=== PATIENT | male | born 1950 | race Caucasian/White ===

== ENCOUNTER 2019-09-10 08:59 | Outpatient (CLI) | payer MEDICARE, OTHER, SELFPAY ==
--- NOTE | 2019-09-22 17:14 | SLEEP_ITS ---
Split night study. DATE OF STUDY: 09/10/2019 ORDERING PHYSICIAN: Jeimy Caballero M.D. REASON FOR THIS STUDY: Obstructive sleep apnea syndrome. HISTORY: This patient is a 69-year-old male, 71 inches tall, weighing 201 pounds with a body mass index of 28. He has complaints of probable sleep apnea due to erythrocytosis. He has had 3 or 4 phlebotomies over the last year. He was evaluated by Hematology and found that he did not have a specific mutation to cause his elevated blood counts. He does snore at night, has dreams on occasion, urinates once at night, wakes up feeling refreshed and does not take naps in the day although in the evening around 7, if he is sitting in a chair with the television on, he may doze. He takes a short nap after intense exercise. He naps for 30 minutes on the days when he has extreme exercise. He drinks 2 cups of coffee in the morning. He does not have problems with leg movements or irritable feelings in the legs at night. He has hypertension. He rarely has anxiety. He denies noticing parts of his body jerk at night. He does not have kicking at night. He does not wake up with morning jaw pain, does not grind his teeth, is not bothered by pain during the day and is not awakened with pain at night. He rarely has nightmares. He occasionally awakens at night with heartburn, snoring and snoring loudly enough that others complain about it. He occasionally gasps for breath at night. He does not sweat excessively at night or notices heart pounding or beating irregularly at night. He rarely falls asleep during the day, rarely involuntarily. He rarely falls asleep with physical effort. He does not have loss of muscle tone with strong emotion or daytime difficulties due to excessive sleepiness. He does not have sleep paralysis or vivid dreamlike scenes upon waking or falling asleep. Normal bedtime is between 10:00 and 11:00 p.m., falling asleep quickly, waking at night for 5 minutes to go to the bathroom. He does not usually take naps, but then says he does take a nap on any day that he exercises, which is about 3 days a week and if he is sitting in a chair around 07:00 p.m. MEDICAL COMORBIDITIES: Hypertension, prostate disease, heart disease. MEDICATIONS: 1. Amlodipine 10 mg a day. 2. Finasteride 5 mg a day. 3. Quinapril 40 mg a day. 4. Aspirin 81 mg a day. HABITS: Never smoked tobacco. Caffeine, 2 cups of coffee a day. No alcohol. DESCRIPTION OF THE STUDY: On the [place] Sleepiness Scale, his score is 3. This was conducted as a split night study using the [employer] multiple channel system including EOG, EEG, submental EMG, EKG, nasal and oral airflow using thermistors and nasal pressure sensors, chest and abdominal belts, body position data and pulse oximetry. The study was scored using [facility] guidelines. During the baseline portion, the recording time was 211.9 minutes. Sleep time was 159 minutes. Sleep efficiency was 75%. Sleep latency was 29.9 minutes. REM latency 81.5 minutes. There were 21 awakenings and the patient spent 23 minutes awake after sleep onset. Sleep architecture showed 8.2% stage 1 sleep, 55.7% stage 2 sleep, 31.8% stage 3 sleep and 4.4% stage REM. He spent 23% of the study supine. Sleep was fragmented with frequent shifts between stage wake 1 and 2. He had a short REM episode. The apnea-hypopnea index was 10.9, all obstructive events. The patient had 2 obstructive hypopneas in non-supine REM for an index of 17.1. He had 5 obstructive apneas, 16 obstructive hypopneas in supine, non-REM for an index of 34.5. He had 6 obstructive hypopneas in non-supine non-REM for an index of 3.1. The lowest desaturation was 85%. There were 30 desaturations of 4% or greater for an index of 8.5. The mean saturation was 92.3%.
== END 2019-09-10 09:00 | disposition home or self-care (01) ==
LOC: ANHCSM 09:00
PROVIDERS: PCP Family Medicine; Visit Provider Internal Medicine Critical Care Medicine
DX: G47.33 Obstructive sleep apnea (adult) (pediatric) (principal)
CPT/HCPCS: 95811

== ENCOUNTER 2020-04-14 10:46 | Outpatient (CLI) | payer MEDICARE, OTHER, SELFPAY ==
[2020-04-14 11:07] LABS: Basophils Percent Auto 0.6 % (0.2-1.2); Eosinophils Absolute Auto 0.1 K/mm3 (0-0.3); Eosinophils Percent Auto 1.8 % (0-4.4); Hematocrit 49.3 % (42.0-52.0); Hemoglobin 16.8 g/dL (14.0-18.0); Immature Granulocyte Absolute 0.01 K/mm3 (0.00-0.031); Immature Granulocyte Percent A 0.2 % (0-0.5); Lymphocytes Absolute Auto 1.65 K/mm3 (0.9-3.2); Lymphocytes Percent Auto 26.4 % (18.3-44.2); Mean Corpuscular HGB Conc 34.1 g/dl (32-36); Mean Corpuscular Hemoglobin 30.9 pg (26-34); Mean Corpuscular Volume 90.6 fl (80-100); Mean Platelet Volume 10.4 fl (7.4-10.4); Monocytes Absolute Auto 0.7 K/mm3 (0.1-0.6); Monocytes Percent Auto 10.4 % (2.6-8.5); Neutrophils Absolute Auto 3.8 K/mm3 (1.3-6.7); Neutrophils Percent Auto 60.6 % (45.5-73.1); Platelet Count Result 162 k/mm3 (150-375); Red Blood Count 5.44 M/mm3 (4.6-6.20); Red Cell Distribution Width 14.6 % (11.5-14.5); White Blood Count 6.3 K/mm3 (4.5-10.0)
[2020-04-14 11:11] LABS: Blood Urea Nitrogen 16 mg/dL (8-26); Carbon Dioxide 26 mmol/L (22-30); Chloride 103 mmol/L (98-109); Estimated Glomerular Filt Rate > 60; Glucose 82 mg/dL (70-105); Potassium 3.9 mmol/L (3.5-4.9); Sodium 141 mmol/L (138-146)
== END 2020-04-14 10:47 | disposition home or self-care (01) ==
LOC: ANHLAB 10:48
PROVIDERS: PCP Family Medicine; Visit Provider Internal Medicine Hematology & Oncology
DX: D75.1 Secondary polycythemia (principal)
CPT/HCPCS: 36415; 80048; 85025

== ENCOUNTER 2020-07-06 14:09 | Outpatient (CLI) | payer MEDICARE, OTHER, SELFPAY ==
[2020-07-06 14:23] LABS: Basophils Percent Auto 0.6 % (0.2-1.2); Eosinophils Absolute Auto 0.1 K/mm3 (0-0.3); Eosinophils Percent Auto 1.8 % (0-4.4); Hematocrit 48.7 % (42.0-52.0); Hemoglobin 16.4 g/dL (14.0-18.0); Immature Granulocyte Absolute 0.01 K/mm3 (0.00-0.031); Immature Granulocyte Percent A 0.1 % (0-0.5); Lymphocytes Absolute Auto 2.06 K/mm3 (0.9-3.2); Lymphocytes Percent Auto 29.3 % (18.3-44.2); Mean Corpuscular HGB Conc 33.7 g/dl (32-36); Mean Corpuscular Hemoglobin 31.1 pg (26-34); Mean Corpuscular Volume 92.4 fl (80-100); Mean Platelet Volume 10.2 fl (7.4-10.4); Monocytes Absolute Auto 0.8 K/mm3 (0.1-0.6); Monocytes Percent Auto 11.8 % (2.6-8.5); Neutrophils Percent Auto 56.4 % (45.5-73.1); Platelet Count Result 150 k/mm3 (150-375); Red Blood Count 5.27 M/mm3 (4.6-6.20); Red Cell Distribution Width 13.8 % (11.5-14.5)
[2020-07-06 17:36] LABS: Alanine Aminotransferase 32 U/L (4-50); Albumin Level 4.1 g/dL (3.5-5.1); Alkaline Phosphatase 82 U/L (38-126); Anion Gap 6 mmol/L (8-16); Aspartate Amino Transferase 34 U/L (17-59); Bilirubin,Total 1.2 mg/dL (0.2-1.3); Blood Urea Nitrogen 20 mg/dL (9-20); Carbon Dioxide 33 mmol/L (22-30); Chloride 103 mmol/L (98-107); Estimated Glomerular Filt Rate > 60; Glucose 58 mg/dL (75-110); Potassium 3.7 mmol/L (3.4-5.0); Sodium 142 mmol/L (137-145)
== END 2020-07-06 14:10 | disposition home or self-care (01) ==
PROVIDERS: PCP Family Medicine; Visit Provider Internal Medicine Hematology & Oncology
DX: D75.1 Secondary polycythemia (principal); D69.6 Thrombocytopenia, unspecified
CPT/HCPCS: 36415; 80053; 85025

== ENCOUNTER 2022-01-10 09:42 | Outpatient (CLI) | payer MEDICARE, OTHER, SELFPAY ==
[2022-01-10 11:37] LABS: Cholesterol 160 mg/dL (0-200); HDL Direct 29 mg/dL; Triglycerides 152 mg/dL (<150)
[2022-01-10 11:48] LABS: LDL Cholesterol Direct 85 mg/dL
== END 2022-01-10 09:43 | disposition home or self-care (01) ==
LOC: ANHLAB 09:44
PROVIDERS: PCP Nurse Practitioner; Visit Provider Nurse Practitioner
DX: I10 Essential (primary) hypertension (principal)
CPT/HCPCS: 36415; 80061

== ENCOUNTER 2022-07-11 11:34 | Outpatient (CLI) | payer MEDICARE, OTHER, SELFPAY ==
[2022-07-11 13:32] LABS: Alanine Aminotransferase 31 U/L (6-50); Albumin Level 4.5 g/dL (3.5-5.1); Alkaline Phosphatase 79 U/L (38-126); Anion Gap 8 mmol/L (8-16); Aspartate Amino Transferase 32 U/L (17-59); Bilirubin,Total 1.1 mg/dL (0.2-1.3); Blood Urea Nitrogen 27 mg/dL (9-20); Calcium 9.4 mg/dL (8.4-10.2); Carbon Dioxide 29 mmol/L (22-30); Chloride 105 mmol/L (98-107); Cholesterol 153 mg/dL (0-200); Estimated Glomerular Filt Rate > 60; Glucose 95 mg/dL (65-110); HDL Direct 36 mg/dL; Potassium 4.4 mmol/L (3.4-5.0); Sodium 142 mmol/L (137-145); Triglycerides 118 mg/dL (<150)
[2022-07-11 13:44] LABS: LDL Cholesterol Direct 85 mg/dL
== END 2022-07-11 11:35 | disposition home or self-care (01) ==
LOC: ANHLAB 11:36
PROVIDERS: PCP Nurse Practitioner; Visit Provider Nurse Practitioner
DX: I10 Essential (primary) hypertension (principal); E78.5 Hyperlipidemia, unspecified; E55.9 Vitamin D deficiency, unspecified
CPT/HCPCS: 36415; 80053; 80061; 82306

== ENCOUNTER 2023-01-10 10:55 | Outpatient (CLI) | payer MEDICARE, OTHER, SELFPAY ==
[2023-01-10 13:50] LABS: Alanine Aminotransferase 42 U/L (6-50); Albumin Level 4.4 g/dL (3.5-5.1); Alkaline Phosphatase 60 U/L (38-126); Anion Gap 6 mmol/L (8-16); Aspartate Amino Transferase 41 U/L (17-59); Bilirubin,Total 1.7 mg/dL (0.2-1.3); Blood Urea Nitrogen 15 mg/dL (9-20); Calcium 9.4 mg/dL (8.4-10.2); Carbon Dioxide 30 mmol/L (22-30); Chloride 102 mmol/L (98-107); Cholesterol 150 mg/dL (0-200); Estimated Glomerular Filt Rate > 60; Glucose 96 mg/dL (65-110); HDL Direct 32 mg/dL; Potassium 3.9 mmol/L (3.4-5.0); Sodium 138 mmol/L (137-145); Triglycerides 146 mg/dL (<150)
[2023-01-10 14:00] LABS: LDL Cholesterol Direct 87 mg/dL
== END 2023-01-10 10:56 | disposition home or self-care (01) ==
LOC: ANHLAB 10:57
PROVIDERS: PCP Family Medicine; Visit Provider Nurse Practitioner Family
DX: I10 Essential (primary) hypertension (principal); Z13.220 Encounter for screening for lipoid disorders; Z13.29 Encounter for screening for other suspected endocrine disorder
CPT/HCPCS: 36415; 80053; 80061; 84443

== ENCOUNTER 2023-02-26 05:52 | Emergency (ER) | payer MEDICARE, OTHER, SELFPAY ==
[2023-02-26 05:56] VITALS: BP 156/94; PULSE 90; RESP 15; TEMP 36.4; O2SAT 98
--- NOTE | 2023-02-26 05:59 | ECG_ITS ---
Measurements Intervals [place] Rate: 80 P: 33 CT: 170 QRS: -18 QRSD: 98 T: 12 QT: 357 QTc: 412 Interpretive Statements SINUS RHYTHM LOW QRS VOLTAGE IN PRECORDIAL LEADS BORDERLINE T WAVE ABNORMALITY- INFERIOR LEADS BORDERLINE ECG NO PREVIOUS ECG AVAILABLE FOR COMPARISON Electronically Signed On 02-26-2023 8:15:54 CDT by Leoncio Ritter D.O.
--- NOTE | 2023-02-26 08:52 | PC.NURSE ---
Pt LWBS, stating, I feel better, not so dizzy . pt ambulated out of ED with steady gait after receiving resources. pt given ENT names and numbers. pt and staff spoke of safety measures to take at home, instructed not to drive until feelings of dizziness have been totally resolved. pt agreeable to this.
== END 2023-02-26 09:35 | disposition left against medical advice (07) ==
LOC: ANHED 09:16
PROVIDERS: Emergency Provider Emergency Medicine; PCP Family Medicine
DX: R11.2 Nausea with vomiting, unspecified (principal)
CPT/HCPCS: 93005; 99199

== ENCOUNTER 2024-01-11 11:17 | Outpatient (CLI) | payer MEDICARE, OTHER, SELFPAY ==
[2024-01-11 11:35] LABS: Basophils Percent Auto 0.6 % (0.2-1.2); Eosinophils Absolute Auto 0.1 K/mm3 (0-0.3); Eosinophils Percent Auto 1.5 % (0-4.4); Hemoglobin 17.7 g/dL (14.0-18.0); Immature Granulocyte Absolute 0.02 K/mm3 (0.00-0.031); Immature Granulocyte Percent A 0.3 % (0-0.5); Lymphocytes Absolute Auto 1.54 K/mm3 (0.9-3.2); Lymphocytes Percent Auto 22.7 % (18.3-44.2); Mean Corpuscular HGB Conc 33.4 g/dl (32-36); Mean Corpuscular Hemoglobin 31.4 pg (26-34); Mean Corpuscular Volume 94.1 fl (80-100); Mean Platelet Volume 10.6 fl (7.4-10.4); Monocytes Absolute Auto 0.6 K/mm3 (0.1-0.6); Monocytes Percent Auto 9.3 % (2.6-8.5); Neutrophils Absolute Auto 4.5 K/mm3 (1.3-6.7); Neutrophils Percent Auto 65.6 % (45.5-73.1); Platelet Count Result 156 k/mm3 (150-375); Red Blood Count 5.63 M/mm3 (4.6-6.20); White Blood Count 6.8 K/mm3 (4.5-10.0)
[2024-01-11 13:31] LABS: Cholesterol 156 mg/dL (0-200); HDL Direct 33 mg/dL; Triglycerides 167 mg/dL (<150)
[2024-01-11 13:34] LABS: Alanine Aminotransferase 67 U/L (6-50); Albumin Level 4.7 g/dL (3.5-5.1); Alkaline Phosphatase 61 U/L (38-126); Anion Gap 13 mmol/L (4-12); Aspartate Amino Transferase 59 U/L (17-59); Bilirubin,Total 2.5 mg/dL (0.2-1.3); Blood Urea Nitrogen 16 mg/dL (9-20); Calcium 9.6 mg/dL (8.4-10.2); Carbon Dioxide 28 mmol/L (22-30); Chloride 101 mmol/L (98-107); Estimated Glomerular Filt Rate > 60; Glucose 102 mg/dL (65-110); Potassium 4.2 mmol/L (3.4-5.0); Sodium 142 mmol/L (137-145)
[2024-01-11 13:36] LABS: Hemoglobin A1C 5.4 % (<5.7)
[2024-01-11 13:42] LABS: LDL Cholesterol Direct 94 mg/dL
== END 2024-01-11 11:18 | disposition home or self-care (01) ==
PROVIDERS: Nurse Practitioner Family; PCP Family Medicine; Visit Provider Internal Medicine Hematology & Oncology
DX: R73.03 Prediabetes (principal); E78.5 Hyperlipidemia, unspecified
CPT/HCPCS: 36415; 80053; 80061; 83036; 85025

== ENCOUNTER 2024-05-12 09:55 | Outpatient (CLI) | payer MEDICARE, OTHER, SELFPAY ==
[2024-05-12 10:15] LABS: Basophils Percent Auto 0.5 % (0.2-1.2); Eosinophils Absolute Auto 0.2 K/mm3 (0-0.3); Eosinophils Percent Auto 2.6 % (0-4.4); Hematocrit 51.8 % (42.0-52.0); Hemoglobin 17.4 g/dL (14.0-18.0); Immature Granulocyte Absolute 0.01 K/mm3 (0.00-0.031); Immature Granulocyte Percent A 0.2 % (0-0.5); Lymphocytes Absolute Auto 1.47 K/mm3 (0.9-3.2); Lymphocytes Percent Auto 23.4 % (18.3-44.2); Mean Corpuscular HGB Conc 33.6 g/dl (32-36); Mean Corpuscular Volume 92.3 fl (80-100); Mean Platelet Volume 10.2 fl (7.4-10.4); Monocytes Absolute Auto 0.7 K/mm3 (0.1-0.6); Monocytes Percent Auto 10.8 % (2.6-8.5); Neutrophils Absolute Auto 3.9 K/mm3 (1.3-6.7); Neutrophils Percent Auto 62.5 % (45.5-73.1); Platelet Count Result 150 k/mm3 (150-375); Red Blood Count 5.61 M/mm3 (4.6-6.20); Red Cell Distribution Width 14.5 % (11.5-14.5); White Blood Count 6.3 K/mm3 (4.5-10.0)
[2024-05-12 12:51] LABS: Alanine Aminotransferase 60 U/L (6-50); Albumin Level 4.5 g/dL (3.5-5.1); Alkaline Phosphatase 67 U/L (38-126); Anion Gap 8 mmol/L (4-12); Aspartate Amino Transferase 58 U/L (17-59); Bilirubin,Total 1.6 mg/dL (0.2-1.3); Blood Urea Nitrogen 15 mg/dL (9-20); Calcium 9.7 mg/dL (8.4-10.2); Carbon Dioxide 30 mmol/L (22-30); Chloride 102 mmol/L (98-107); Estimated Glomerular Filt Rate > 60; Glucose 94 mg/dL (65-110); Potassium 4.3 mmol/L (3.4-5.0); Sodium 140 mmol/L (137-145)
== END 2024-05-12 09:56 | disposition home or self-care (01) ==
LOC: ANHLAB 09:57
PROVIDERS: PCP Family Medicine; Visit Provider Internal Medicine Hematology & Oncology
DX: D75.1 Secondary polycythemia (principal)
CPT/HCPCS: 36415; 80053; 85025

== ENCOUNTER 2024-07-15 10:53 | Outpatient (CLI) | payer MEDICARE, OTHER, SELFPAY ==
[2024-07-15 11:19] LABS: Basophils Percent Auto 0.7 % (0.2-1.2); Eosinophils Percent Auto 0.4 % (0-4.4); Hematocrit 53.2 % (42.0-52.0); Hemoglobin 17.9 g/dL (14.0-18.0); Immature Platelet Fraction Pct 5.3 % (0.9-11.2); Lymphocytes Absolute Auto 1.66 K/mm3 (0.9-3.2); Lymphocytes Percent Auto 30.5 % (18.3-44.2); Mean Corpuscular HGB Conc 33.6 g/dl (32-36); Mean Corpuscular Hemoglobin 31.2 pg (26-34); Mean Corpuscular Volume 92.7 fl (80-100); Mean Platelet Volume 10.7 fl (7.4-10.4); Monocytes Absolute Auto 0.8 K/mm3 (0.1-0.6); Monocytes Percent Auto 14.5 % (2.6-8.5); Neutrophils Absolute Auto 2.9 K/mm3 (1.3-6.7); Neutrophils Percent Auto 53.9 % (45.5-73.1); Platelet Count Result 130 k/mm3 (150-375); Red Blood Count 5.74 M/mm3 (4.6-6.20); Red Cell Distribution Width 14.9 % (11.5-14.5); White Blood Count 5.4 K/mm3 (4.5-10.0)
[2024-07-15 13:02] LABS: Cholesterol 118 mg/dL (0-200); HDL Direct 30 mg/dL; Triglycerides 132 mg/dL (<150)
[2024-07-15 13:06] LABS: Alanine Aminotransferase 55 U/L (6-50); Alkaline Phosphatase 57 U/L (38-126); Anion Gap 12 mmol/L (4-12); Aspartate Amino Transferase 59 U/L (17-59); Bilirubin,Total 2.3 mg/dL (0.2-1.3); Blood Urea Nitrogen 25 mg/dL (9-20); Calcium 8.9 mg/dL (8.4-10.2); Carbon Dioxide 25 mmol/L (22-30); Chloride 103 mmol/L (98-107); Estimated Glomerular Filt Rate > 60; Glucose 87 mg/dL (65-110); Potassium 3.9 mmol/L (3.4-5.0); Sodium 140 mmol/L (137-145)
[2024-07-15 13:12] LABS: LDL Cholesterol Direct 70 mg/dL
[2024-07-15 13:18] LABS: Vitamin D 25 Hydroxy 59.1 ng/mL
[2024-07-15 13:34] LABS: Prostate Specific Antigen 5.1 ng/mL (< OR = 4.0)
[2024-07-15 14:31] LABS: Free T4 Free Thyroxine Reflex 1.04 ng/dL (0.78-2.19)
[2024-07-15 15:57] LABS: Total Triiodothyronine (T3) 1.23 NG/ML (0.97-1.69)
== END 2024-07-15 10:54 | disposition home or self-care (01) ==
LOC: ANHLAB 11:01
PROVIDERS: PCP Nurse Practitioner Family; Visit Provider Internal Medicine Hematology & Oncology
DX: E03.9 Hypothyroidism, unspecified (principal); I10 Essential (primary) hypertension; E55.9 Vitamin D deficiency, unspecified; Z12.5 Encounter for screening for malignant neoplasm of prostate
CPT/HCPCS: 36415; 80053; 80061; 82306; 84153; 84439; 84443; 84480; 85025; 85055; G0103